=== PATIENT | male | born 1965 | race Caucasian/White ===

== ENCOUNTER 2025-07-04 08:50 | Outpatient (CLI) | payer MEDICAID ==
[~2025-07-04 08:50] MED LIST: iohexol 300mg/ml 100ml inj. ONE
--- NOTE | 2025-07-04 10:36 | RADIOLOGY REPORT ---
EXAM: CT CT HEAD W/WO IV CONTRAST INDICATION: OCCIPITAL PAIN TECHNIQUE: CT of the head without intravenous contrast. Radiation Dose Information: CT Dose: CTDI volume is 25 mGy. Dose-length product is 250 mGy*cm The dose indicators for CT are the volume Computed Tomography (CT) Dose Index (CTDIvol) and the Dose Length Product (DLP), and are measured in units of mGy and mGy-cm, respectively. These indicators are not patient dose, but values generated from the CT scanner acquisition factors. The report includes radiation exposure data for exposures received during this examination. COMPARISON: None FINDINGS: There is no evidence of acute intracranial hemorrhage, extra-axial collection, mass effect, midline shift, herniation or hydrocephalus. The ventricles, sulci and cisterns are age appropriate. The martínez-white differentiation is intact. Patchy periventricular and subcortical white matter hypoattenuation is nonspecific but may be related to small vessel ischemic disease. The visualized paranasal sinuses and mastoid air cells are clear. The surrounding soft tissues and osseous structures are unremarkable. IMPRESSION: No acute intracranial abnormality.
== END 2025-07-04 23:59 | disposition home or self-care (01) ==
LOC: RAD 08:50
DX: R90.82 White matter disease, unspecified (principal); R51.9 Headache, unspecified; H93.13 Tinnitus, bilateral; E78.00 Pure hypercholesterolemia, unspecified; Z87.891 Personal history of nicotine dependence
CPT/HCPCS: 70470; Q9967